=== PATIENT | female | born 1980 | race Caucasian/White ===

== ENCOUNTER 2017-12-23 10:42 | Outpatient (CLI) | payer MEDICAID, SELFPAY ==
[2017-12-23 13:35] LABS: Ferritin 80 ng/mL (8-388)
== END 2017-12-23 11:02 ==
PROVIDERS: PCP Family Medicine; Visit Provider Nurse Practitioner
DX: M25.50 Pain in unspecified joint (principal)
CPT/HCPCS: 36415; 82728

== ENCOUNTER 2018-10-27 13:53 | Outpatient (CLI) | payer MEDICAID, SELFPAY ==
[2018-10-27 14:18] LABS: Abs Immature Grans 0.04 k/cumm (0.0-0.09); Absolute Basophil Count 0.04 k/cumm (0.0-0.2); Absolute Eosinophil Count 0.19 k/cumm (0.0-0.7); Absolute Lymphocyte Count 2.09 k/cumm (1.2-3.4); Absolute Monocyte Count 0.71 k/cumm (0.11-0.7); Absolute Neutrophil Count 4.34 k/cumm (1.2-6.7); Basophils % 0.5; Eosinophils % 2.6; HCT 40.4 % (36.0-46.0); HGB 13.7 g/dL (12.0-15.5); Immature Grans % 0.5; Lymphocytes % 28.2; Mean Corp. HGB Concentration 33.9 g/dL (32.0-36.0); Mean Corpuscular Hemoglobin 30.6 pg (27.0-33.0); Mean Corpuscular Volume 90.2 fL (80-95); Mean Platelet Volume 9.7 fL (8.0-11.0); Monocytes % 9.6; Neutrophils % 58.6; Platelet Count 229 x1000/uL (130-400); RBC 4.48 m/cumm (4.00-5.20); RBC Distribution Width 11.5 % (11.7-14.6); White Blood Cell Count 7.41 k/cumm (4.4-10.8)
[2018-10-27 15:49] LABS: ALT 19 U/L (12-78); AST 13 U/L (15-37); Albumin 4.3 g/dL (3.4-5.0); Alkaline Phosphatase 49 U/L (46-116); BUN 19 mg/dL (7-18); Bilirubin, Total 0.5 mg/dL (0.2-1.0); CREATININE 0.61 mg/dL (0.55-1.02); Calcium 9.3 mg/dL (8.5-10.1); Chloride 104 mmol/L (98-107); Glucose 92 mg/dL (70-100); Sodium 141 mmol/L (136-145); Total Protein 7.8 g/dL (6.4-8.2)
== END 2018-10-27 14:13 ==
PROVIDERS: PCP Family Medicine; Visit Provider Nurse Practitioner Psychiatric/Mental Health
DX: Z79.899 Other long term (current) drug therapy (principal)
CPT/HCPCS: 36415; 80053; 84443; 85025

== ENCOUNTER 2018-11-13 10:21 | Outpatient (CLI) | payer MEDICAID, SELFPAY ==
[2018-11-13 11:13] LABS: Lithium 1.16 mmol/L (0.60-1.20)
== END 2018-11-13 10:41 ==
PROVIDERS: PCP Family Medicine; Visit Provider Nurse Practitioner Psychiatric/Mental Health
DX: Z51.81 Encounter for therapeutic drug level monitoring (principal); Z79.899 Other long term (current) drug therapy
CPT/HCPCS: 36415; 80178

== ENCOUNTER 2018-12-01 03:35 | Outpatient (CLI) | payer MEDICAID, SELFPAY ==
[2018-12-01 08:43] LABS: Lithium 0.69 mmol/L (0.60-1.20)
== END 2018-12-01 03:55 ==
PROVIDERS: PCP Family Medicine; Visit Provider Nurse Practitioner Psychiatric/Mental Health
DX: Z51.81 Encounter for therapeutic drug level monitoring (principal); Z79.899 Other long term (current) drug therapy
CPT/HCPCS: 36415; 80178

== ENCOUNTER 2018-12-20 09:21 | Outpatient (CLI) | payer MEDICAID, SELFPAY ==
[2018-12-20 09:39] LABS: Abs Immature Grans 0.05 k/cumm (0.0-0.09); Absolute Basophil Count 0.06 k/cumm (0.0-0.2); Absolute Eosinophil Count 0.39 k/cumm (0.0-0.7); Absolute Lymphocyte Count 1.44 k/cumm (1.2-3.4); Absolute Monocyte Count 0.63 k/cumm (0.11-0.7); Absolute Neutrophil Count 5.79 k/cumm (1.2-6.7); Basophils % 0.7; Eosinophils % 4.7; HCT 39.3 % (36.0-46.0); HGB 12.7 g/dL (12.0-15.5); Immature Grans % 0.6; Lymphocytes % 17.2; Mean Corp. HGB Concentration 32.3 g/dL (32.0-36.0); Mean Corpuscular Hemoglobin 30.1 pg (27.0-33.0); Mean Corpuscular Volume 93.1 fL (80-95); Mean Platelet Volume 10.2 fL (8.0-11.0); Monocytes % 7.5; Neutrophils % 69.3; Platelet Count 193 x1000/uL (130-400); RBC 4.22 m/cumm (4.00-5.20); RBC Distribution Width 11.6 % (11.7-14.6); White Blood Cell Count 8.36 k/cumm (4.4-10.8)
[2018-12-20 13:28] LABS: Lithium 1.01 mmol/L (0.60-1.20)
== END 2018-12-20 09:41 ==
PROVIDERS: PCP Family Medicine; Visit Provider Nurse Practitioner Psychiatric/Mental Health
DX: F31.81 Bipolar II disorder (principal); Z51.81 Encounter for therapeutic drug level monitoring; Z79.899 Other long term (current) drug therapy; F32.9 Major depressive disorder, single episode, unspecified
CPT/HCPCS: 36415; 80164; 80178; 85025

== ENCOUNTER 2019-01-22 08:39 | Outpatient (CLI) | payer MEDICAID, SELFPAY ==
[2019-01-22 09:11] LABS: Abs Immature Grans 0.04 k/cumm (0.0-0.09); Absolute Basophil Count 0.04 k/cumm (0.0-0.2); Absolute Lymphocyte Count 1.39 k/cumm (1.2-3.4); Absolute Monocyte Count 0.58 k/cumm (0.11-0.7); Basophils % 0.6; Eosinophils % 5.8; Immature Grans % 0.6; Lymphocytes % 20.3; Monocytes % 8.5; Neutrophils % 64.2; Platelet Count 207 x1000/uL (130-400); White Blood Cell Count 6.85 k/cumm (4.4-10.8)
[2019-01-22 10:08] LABS: Lithium 1.24 mmol/L (0.60-1.20)
[2019-01-22 10:25] LABS: ALT 30 U/L (14-59); AST 11 U/L (15-37); BUN 7 mg/dL (7-18); TSH 1.66 uIU/mL (0.36-3.74)
== END 2019-01-22 08:59 ==
PROVIDERS: PCP Family Medicine; Visit Provider Nurse Practitioner Psychiatric/Mental Health
DX: F31.81 Bipolar II disorder (principal); Z51.81 Encounter for therapeutic drug level monitoring; Z79.899 Other long term (current) drug therapy
CPT/HCPCS: 36415; 84520; 85048; 80164; 80178; 84443; 84450; 84460; 85007; 85049

== ENCOUNTER 2019-05-02 16:41 | Outpatient (CLI) | payer MEDICAID, SELFPAY ==
--- NOTE | 2019-05-02 16:04 | DI.RAD_ITS ---
EXAM: XR KNEE RT 3V AP,LAT,DENIA INDICATION: RT KNEE PAIN M25.561, S/P EXCISION CHOSTOCHONDROMA 2016, RECURRENT PAIN,? recurrence COMPARISON: RIGHT KNEE 3 VIEWS from 06/09/2015 RIGHT KNEE 3 VIEWS from 03/21/2017 TECHNIQUE: 2D digital imaging was performed. FINDINGS: The bones are intact and normally mineralized. No evidence of a recurrent osteochondroma. The joint spaces are well maintained. The soft tissues are unremarkable.
== END 2019-05-02 17:01 ==
PROVIDERS: PCP Family Medicine; Visit Provider Family Medicine
DX: M25.561 Pain in right knee (principal); Z98.890 Other specified postprocedural states
CPT/HCPCS: 73562

== ENCOUNTER 2019-12-03 19:14 | Outpatient (REF) | payer MEDICAID, SELFPAY ==
[2019-12-03 19:53] LABS: Absolute Basophil Count 0.05 10^3/uL (0.0-0.2); Absolute Eosinophil Count 0.26 10^3/uL (0.0-0.7); Basophils % 0.6; HGB 13.4 g/dL (11.2-15.7); Nucleated RBC 0 %
[2019-12-03 19:55] LABS: Abs Immature Grans 0.12 10^3/uL (0.0-0.06); Absolute Lymphocyte Count 1.77 10^3/uL (1.2-3.4); Absolute Monocyte Count 0.64 10^3/uL (0.1-0.8); Eosinophils % 3.3; HCT 41.6 % (36.0-46.0); Immature Grans % 1.5; Lymphocytes % 22.5; MCH 30.1 pg (27.0-33.0); MCHC 32.2 % (32.0-36.0); MCV 93.5 fL (80-95); MPV 11.3 fL (8.0-11.0); Monocytes % 8.1; RBC 4.45 10^6/uL (3.93-5.22); RDW 11.1 % (11.7-14.6); RDW-SD 37.5 fL; WBC 7.86 10^3/uL (4.4-10.8)
[2019-12-03 20:16] LABS: ALT 28 U/L (14-59); AST 11 U/L (15-37); Albumin 4.2 g/dL (3.4-5.0); Alkaline Phosphatase 50 U/L (46-116); Bilirubin, Direct 0.09 mg/dL (0.00-0.20); Bilirubin, Total 0.3 mg/dL (0.2-1.0); TSH (W/Ref FT4) 0.39 uIU/mL (0.36-3.74); Total Protein 7.5 g/dL (6.4-8.2)
[2019-12-03 20:21] LABS: Absolute Neutrophil Count 5.03 10^3/uL (1.2-6.7)
[2019-12-03 20:25] LABS: Vitamin D 25 Total 30.1 ng/ml (30-100)
[2019-12-03 22:37] LABS: Diff Comment PLT Morph Reviewed; RBC Morphology Normal
[2019-12-03 22:38] LABS: Platelet Count 159 10^3/uL (130-400)
== END 2019-12-03 19:34 ==
LOC: NCHCN 19:14
PROVIDERS: PCP Family Medicine; Visit Provider Nurse Practitioner Psychiatric/Mental Health
DX: F32.9 Major depressive disorder, single episode, unspecified (principal); Z79.899 Other long term (current) drug therapy; Z51.81 Encounter for therapeutic drug level monitoring
CPT/HCPCS: 80076; 82306; 84443; 85025

== ENCOUNTER 2020-06-15 09:03 | Emergency (ER) | payer MEDICAID, SELFPAY ==
[2020-06-15] VITALS (16 sets, daily range): BP systolic 118–131; BP diastolic 62–76; PULSE 72–133; RESP 16–52; TEMP 36.3; O2SAT 97–100
--- NOTE | 2020-06-15 09:15 | RT.EKG_ITS ---
APPROVED REPORT Exam: Resting ECG Patient Location: E HR:88 bpm ECG Measurements Heart Rate 88 AXIS ND 159 P 73 QRSd 81 QRS 60 QT 351 T 36 QTc 426 Conclusion Sinus rhythm...normal P axis, V-rate 60- 99
--- NOTE | 2020-06-15 09:30 | DI.CT_ITS ---
EXAM: CT CHEST PE CTA CLINICAL HISTORY: dyspnea, chest tightness. TECHNIQUE: Imaging Protocol: Axial CT angiography was performed with multi-slice acquisition and mu lti-planar and/or 3D reconstructions. CONTRAST MATERIAL: Intravenous: Omnipaque 350 Contrast volume:100 mL COMPARISON: CT CHEST FOR PULMONARY EMBOLUS from 06/24/2016 FINDINGS: Tracheobronchial tree: Patent where visualized. Pulmonary parenchyma: No consolidation or dominant measurable mass. No architectural distortion. Pulmonary Arteries: No evidence of filling defect to suggest pulmonary emboli. Mediastinum and Adriana: No dominant adenopathy or fluid collection. Small hiatal hernia. Visualized thyroid gland: Unremarkable. Pleura: No effusion or pneumothorax. Heart: The heart is not dilated. No coronary artery calcifications are seen. No pericardial effusion. Aorta: Thoracic aorta non-dilated. No evidence of dissection. Upper abdomen: Status post cholecystectomy. No biliary ductal dilatation. Soft tissues: Unremarkable. Bones: Normal. IMPRESSION: No evidence of pulmonary embolism, thoracic aortic dissection or aneurysm. RADIATION DOSE DELIVERED: 334.39mGy.cm Total DLP DATA REPOSITORY: All CT scans at this facility are submitted to the National Radiology Data Registry (NRDR) Dose Index Registry (DIR) with the [employer] (A[employer]). RADIATION OPTIMIZATION: All CT scans at this facility use at least one of these dose optimization te chniques: automated exposure control; mA and/or kV adjustment per patient size (includes targeted exa ms where dose is matched to clinical indication); or iterative reconstruction.
--- NOTE | 2020-06-15 09:35 | ED.GENADUL_ITS ---
Discharge Plan Disposition Patient Disposition: HOME Condition: Stable Discharge Details Clinical Impression: Shortness of breath Primary Care Provider: Dana Cagle ED Provider: Alec Conrad Home Meds and New Rx's Prescriptions: New lorazepam 1 mg tablet 1 mg PO TID PRN (Reason: anxiety) Qty: 10 RF: 0 Continued valproic acid [Depakene] 250 mg capsule 250 mg PO QAM RF: 0 valproic acid [Depakene] 250 mg capsule 500 mg PO QHS RF: 0 riboflavin (vitamin B2) 100 mg tablet 100 mg PO BID Qty: 60 RF: 6 Mirena 1 EACH intrauterine device 1 ea Intrauterine ONCE Qty: 1 RF: 0 sumatriptan succinate [Imitrex] 100 mg tablet 100 mg PO ONCE RF: 0 gabapentin 300 mg capsule 1,200 mg PO QHS RF: 0 Discontinued lorazepam 0.5 mg tablet 0.25 mg PO DAILY PRNRF: 0 Discharge Instructions Additional Instructions: Your blood work and cat scan did not show any concerning findings your vital signs did not show any concerning findings follow up with your primary care provider within 1-2 weeks if you feel more ill, have worsening symptoms or severe pain return to the emerg ency department Stand Alone Forms: POSITIVE COVID-19/TO BE TESTED Medical Decision Making 40 yo female who states she tested positive for covid this past comes in with complaints of feeling general weaknes and chest tightness and that it is hard to breath. She arrives appearing to be in a panic attack breathing over 40 a minute and having tremors of the extremities. She has clear breath sounds throughout, no murmurs. Denies smoking alcohol or drug use. She has no jvd or leg swelling. I suspect her symptoms could be from anxiety and unlikely severe covid19 given 100% on room air. Given her chest tightness will obtain ecg and troponin, heart score is 2. She is wells score moderate given her tachycardia so will obtain CTA to evaluate for PE vs underlying pneumonia. pt less anxious after ativan and now has normal heart rate and respiratory rate, stable blood pressure and 100% on room air, will continue to monitor imaging unremarkable and labs also unremarkable. She remains stable and appears significantly better after ativan and ivf. Given over a day of symptoms do not feel additional troponin indicated. will d/c home and advised to f/u with pcp, return precautions given. Pt offered oximeter for home use but declines as she states she has one already Differential Diagnosis Differential Diagnosis: covid, PE, pneumonia Medical Records Medical records reviewed: Yes I reviewed the patient's medical records. Imaging Data Radiologic Study: Attestation: I personally reviewed and interpreted this imaging study as follows: Imaging: CT Scan Radiologist's impression: no acute findings Lab Data Lab results reviewed: Yes I reviewed the patient's lab results. ECG Data Attestation: I personally reviewed and interpreted this ECG (s) as follows: Prior ECG tracings: not available for review Interpretation: sinus rhythm, rate of 88, pr 159, qtc 426 HPI General Date/Time Provider Initiated Documentation: 06/15/20 09:04 . Limitations to Documentation: no limitations . Information obtained by: patient . History of Present Illness 40 year old F presents to the emergency department with the chief complaint of can't breathe, described as moderate, and it has been constant. No relieving factors improve symptom(s), No exacerbating factors reported . Patient did receive the following treatments prior to arrival, none Related Data Home Medications Medication Instructions Recorded Confirmed Mirena 1 ea INTRAUTERINE ONCE #1 implant 07/20/17 06/15/20 sumatriptan succinate 100 mg tablet 100 mg PO ONCE 12/22/18 06/15/20 gabapentin 300 mg capsule 1,200 mg PO QHS cap 12/27/18 06/15/20 riboflavin (vitamin B2) 100 mg 100 mg PO BID #60 tab 12/27/18 06/15/20 tablet valproic acid 250 mg capsule 250 mg PO QAM cap 01/24/19 06/15/20 valproic acid 250 mg capsule 500 mg PO QHS cap 01/24/19 06/15/20 lorazepam 1 mg PO TID PRN #10 tab 06/15/20 Previous Rx's Medication Instructions Recorded Mirena 1 ea INTRAUTERINE ONCE #1 implant 07/20/17 riboflavin (vitamin B2) 100 mg 100 mg PO BID #60 tab 12/27/18 tablet lorazepam 1 mg PO TID PRN #10 tab 06/15/20 Allergies Allergy/AdvReac Type Severity Reaction Status Date / Time ondansetron HCl [From Zofran] Allergy Severe CARDIAC Unverified 06/15/20 09:54 ARREST hydrocodone bitartrate AdvReac Intermediate Nausea Unverified 06/15/20 09:54 [From Vicodin] Penicillins AdvReac Intermediate flu Unverified 06/15/20 09:54 symptoms General Stated Complaint: SOB SHAHRAM: 2 Review of Systems All systems reviewed & are unremarkable except as noted in HPI and below Constitutional Constitutional: Denies chills Gastrointestinal Gastrointestinal: Denies abdominal pain, Denies nausea and Denies vomiting Musculoskeletal Musculoskeletal: Denies joint swelling [facility] Medical History (Updated 06/15/20 @ 11:14 by Alec Conrad MD) Attempted suicide Bipolar disorder Calculus of gallbladder with acute cholecystitis Cardiac arrest at age 17yrs from allegic reaction to Zofran. Childhood asthma Chronic fatigue Chronic insomnia Depression Genital herpes Hirsutism Inappropriate diet and eating habits Insomnia IUD (intrauterine device) in place Knee pain, right Migraine headache Migraine headache with aura Migraine headache without aura PTSD (post-traumatic stress disorder) Tension-type headache Surgical History section Cholecystectomy 2013 Repair, Cleft Lip Repair, Cleft Palate Family History Father Personal history of malignant neoplasm Sister Personal history of malignant neoplasm leukemia Brother Heart disease Social History (Updated 01/24/19 @ 12:27 by Mickie Nguyen RN) Smoking/Tobacco Use Status: Never Smoking risk assessment performed?: Yes Alcohol Intake: never Drug use: Never Seatbelt use: always Do you feel safe in your relationship?: Yes Exam Const General: anxious Orientation: alert HENMT Head: normal to inspection Ears: external ears normal General nose exam: external nose normal Mouth: moist mucous membranes Eyes General: appearance normal, both eyes and all related structures Neck Neck: normal visual inspection Resp Auscultation: clear to auscultation bilaterally Cardio Rate: regular rate Skin General skin exam: no rashes or lesions noted Neuro General: patient alert and patient oriented x3 Extrem General: normal to inspection Psych Mental Status: mental status grossly normal Course Vital Signs Vital signs: Vital Signs Temperature 36.3 C L 06/15/20 09:23 Pulse 122 H 06/15/20 09:23 Respiratory Rate 21 06/15/20 09:23 Blood Pressure 127/62 06/15/20 09:23 Pulse Oximetry 100 06/15/20 09:23 Temperature 36.3 C L 06/15/20 09:23 Temperature Source Skin 06/15/20 09:23 Pulse 122 H 06/15/20 09:23 Respiratory Rate 21 06/15/20 09:23 Respiratory Effort 06/15/20 09:23 Blood Pressure 127/62 06/15/20 09:23 Blood Pressure Position Sitting 06/15/20 09:23 Pulse Oximetry 100 06/15/20 09:23 Oxygen Delivery Method Room Air 06/15/20 09:23 Oxygen Flow Rate 0 06/15/20 09:23 Pain Level 9 06/15/20 09:23
[2020-06-15] MEDS: Normal Saline Flush 10 ML SYR IVP ×2 (09:40→10:52)
[2020-06-15 09:49] LABS: BE (Venous) 2 mmol/L (-2-3); HCO3 (Venous) 26 mmol/L (23-28); O2 Sat (Venous) 78 %; TCO2 (Venous) 23 mmol/L (24-29); pCO2 (Venous) 36 mmHg (41-51); pH (Venous) 7.47 (7.31-7.41); pO2 (Venous) 36 mmHg
[2020-06-15] MEDS: Normal Saline 1,000 ML 1000 ML IV (09:50)
[2020-06-15 09:51] LABS: Abs Immature Grans 0.03 10^3/uL (0.0-0.06); Absolute Basophil Count 0.03 10^3/uL (0.0-0.2); Absolute Eosinophil Count 0.06 10^3/uL (0.0-0.7); Absolute Lymphocyte Count 0.97 10^3/uL (1.2-3.4); Absolute Monocyte Count 0.83 10^3/uL (0.1-0.8); Absolute Neutrophil Count 4.62 10^3/uL (1.2-6.7); Basophils % 0.5; Eosinophils % 0.9; HGB 14.2 g/dL (11.2-15.7); Immature Grans % 0.5; Lymphocytes % 14.8; MCH 30.7 pg (27.0-33.0); MCHC 34.6 % (32.0-36.0); MCV 88.7 fL (80-95); MPV 9.9 fL (8.0-11.0); Monocytes % 12.7; Neutrophils % 70.6; Nucleated RBC 0 %; Platelet Count 160 10^3/uL (130-400); RBC 4.62 10^6/uL (3.93-5.22); RDW 10.9 % (11.7-14.6); RDW-SD 35.5 fL; WBC 6.54 10^3/uL (4.4-10.8)
[2020-06-15] MEDS: LORazepam 2 MG/ML VIAL 1 MG IVP (09:52)
[2020-06-15 10:02] LABS: PTT Activated 25.9 sec (21.0-27.5); Prothrombin Time 10.4 sec (9.3-11.0)
[2020-06-15 10:13] LABS: ALT 21 U/L (14-59); AST 18 U/L (15-37); Albumin 4.1 g/dL (3.4-5.0); Alkaline Phosphatase 58 U/L (46-116); Anion Gap 11.8 mmol/L (3-11); BUN 21 mg/dL (7-18); Bilirubin, Total 0.5 mg/dL (0.2-1.0); CO2 25.2 mmol/L (21.0-32.0); CREATININE 0.8 mg/dL (0.55-1.02); Chloride 100 mmol/L (98-107); Glucose 102 mg/dL (74-106); Magnesium 2.1 mg/dL (1.8-2.4); Potassium 3.5 mmol/L (3.5-5.1); Sodium 137 mmol/L (136-145); Total Protein 8.6 g/dL (6.4-8.2); Troponin I < 0.05 ng/mL (<0.06)
[2020-06-15 10:24] LABS: Lithium < 0.2 mmol/l (0.6-1.2); VALPROIC ACID < 3 ug/mL (50-100)
--- NOTE | 2020-06-15 10:47 | NUR.NOTE ---
unable to obtain urine. states she is not , states she has not had sex. also mirena is in place. is willing to take risk that she is not to have ct scan before urine test.Nursing Note:
[2020-06-15] MEDS: Omnipaque 350 MG/ML 50 ML BTL 100 ML IJ (10:51)
[2020-06-15] MEDS: Normal Saline - Diluent 50 ML VIAL IV (10:52)
--- NOTE | 2020-06-15 11:05 | DI.VRAD_ITS ---
PROCEDURE INFORMATION: Exam: CT Angiography Chest With Contrast Exam date and time: 06/15/2020 9:35 AM Age: 40 years old Clinical indication: Patient HX: Dyspnea, chest tightness TECHNIQUE: Imaging protocol: Computed tomographic angiography of the chest with contrast. 3D rendering (Not supervised by radiologist): MIP and/or 3D reconstructed images were created by the technologist. Contrast material: OMNIPAQUE 350; Contrast volume: 100 ml; Contrast route: INTRAVENOUS (IV); COMPARISON: CT CHEST FOR PULMONARY EMBOLUS 06/24/2016 4:52 AM FINDINGS: Pulmonary arteries: Normal. No pulmonary emboli. Aorta: Unremarkable. No aortic aneurysm. No aortic dissection. Lungs: There is bibasilar atelectasis. There is mild pleuroparenchymal apical thickening. Pleural spaces: Unremarkable. No pneumothorax. No pleural effusion. Heart: Heart is within normal limits in size. Mediastinal space: There is a small hiatal hernia. Lymph nodes: Unremarkable. No enlarged lymph nodes. Gallbladder and bile ducts: There are cholecystectomy clips. Bones/joints: No acute fracture. Soft tissues: Unremarkable. IMPRESSION: 1. No focal consolidation or pleural effusion. 2. No pulmonary embolism or aortic dissection. Dictated and Authenticated by: Geovanny Ramirez MD. Ordering:JESSICA Michael MD
== END 2020-06-15 11:35 | disposition home or self-care (01) ==
PROVIDERS: Emergency Provider Emergency Medicine; PCP Family Medicine
DX: R06.02 Shortness of breath (principal); R07.89 Other chest pain
CPT/HCPCS: 71275; 80053; 82805; 93005; 96361; 96374; 99285; 80164; 80178; 83735; 84484; 85025; 85610; 85730; 93010; 99283; J2060; Q9967

== ENCOUNTER 2020-07-25 03:57 | Outpatient (CLI) | payer MEDICAID, SELFPAY ==
--- NOTE | 2020-07-25 13:11 | DI.RAD_ITS ---
EXAM: XR CHEST 2V PA LATERAL CLINICAL HISTORY: SOB.R06.02 TECHNIQUE: 2D digital imaging was performed. COMPARISON: No exams were available for comparison FINDINGS: MEDIASTINUM: Normal. HEART: Normal. PULMONARY VASCULATURE: Normal. LUNGS: Clear. PLEURAL SPACE: No pleural effusion or pneumothorax. BONE:Within normal limits for the patient's age. OTHER FINDINGS:Normal. IMPRESSION: No acute pulmonary findings. DATA REPOSITORY: RADIATION DOSE DELIVERED:
== END 2020-07-25 04:17 ==
PROVIDERS: PCP Family Medicine; Visit Provider Nurse Practitioner Family
DX: R06.02 Shortness of breath (principal)
CPT/HCPCS: 71046

== ENCOUNTER 2020-07-28 16:45 | Outpatient (REF) | payer MEDICAID, SELFPAY ==
[2020-07-28 21:54] LABS: Abs Immature Grans 0.08 10^3/uL (0.0-0.06); Absolute Basophil Count 0.07 10^3/uL (0.0-0.2); Absolute Eosinophil Count 0.16 10^3/uL (0.0-0.7); Absolute Lymphocyte Count 2.06 10^3/uL (1.2-3.4); Absolute Monocyte Count 0.71 10^3/uL (0.1-0.8); Absolute Neutrophil Count 7.31 10^3/uL (1.2-6.7); Basophils % 0.7; Eosinophils % 1.5; HCT 43.8 % (36.0-46.0); HGB 14.4 g/dL (11.2-15.7); Immature Grans % 0.8; Lymphocytes % 19.8; MCH 29.8 pg (27.0-33.0); MCHC 32.9 % (32.0-36.0); MCV 90.5 fL (80-95); Monocytes % 6.8; Neutrophils % 70.4; Nucleated RBC 0 %; Platelet Count 144 10^3/uL (130-400); RBC 4.84 10^6/uL (3.93-5.22); RDW 11.7 % (11.7-14.6); RDW-SD 38.9 fL; WBC 10.39 10^3/uL (4.4-10.8)
== END 2020-07-28 16:46 | disposition home or self-care (01) ==
LOC: NCHCN 16:45
PROVIDERS: PCP Family Medicine; Visit Provider Family Medicine
DX: Z86.16 Personal history of COVID-19 (principal)
CPT/HCPCS: 80053; 85025; 86140

== ENCOUNTER 2020-12-30 00:47 | Outpatient (CLI) | payer MEDICAID, SELFPAY ==
--- OUTSIDE RECORDS SUMMARY | 2020-12-30 00:49 | XMS_ITS ---
:1980 Author Care Team Providers Name Role Phone DR. MALLIKA CESAR Referring Provider [phone] [facility] MEDICAL RECORDS Primary Care Provider [phone] Allergies Code Code System Name Reaction Severity Status Onset 5489 RxNorm Hydrocodone ? ? Active ? 28848 RxNorm Ondansetron ? ? Active ? Penicillins ? ? Active ? Medications Name Status Start Date Stop Date ? ? amitriptyline 10 mg tablet Completed ? 03/13 TAKE 1-2 TABLETS BY MOUTH AT BEDTIME amitriptyline 50 mg tablet Completed ? 02/09 Take 1 tablet every day by oral route at bedtime. Effexor 75 mg tablet Completed ? 06/26/2018 Take 1 tablet every day by oral route. Effexor XR 150 mg capsule,extended release Completed ? 09/07/2018 Take 1 capsule every day by oral route. gabapentin 100 mg capsule Completed ? 2018 take 1-3 capsules PO QHS gabapentin 300 mg capsule Active ? Not av ailable TAKE 1-2 CAPSULES BY MOUTH AT BEDTIME mirtazapine 15 mg tablet Completed ? 018 mirtazapine 30 mg tablet Completed ? 018 mirtazapine 7.5 mg tablet Completed ? 2017 ropinirole 0.25 mg tablet Completed ? 2017 take 1 PO 2-3 hours before bedtime for one week then increase to two tablets for one week ropinirole 1 mg tablet Completed ? 8 take 1 PO 2-3 hours before bedtime sumatriptan 100 mg tablet Active ? Not av ailable topiramate 25 mg tablet Completed ? 11/25/19 18 trazodone 50 mg tablet Completed ? 8 zolpidem 5 mg tablet Completed ? 11/24/2017 take 1 PO at bedtime for two weeks Problems Name Status Onset Date Source ? Restless Legs Active 08/25/2017 ? Insomnia Active 09/19/2017 ? Obstructive Sleep Apnea Syndrome Active 09/19/2017 ? Mild Depression Active 10/21/2017 ? Migraine with Aura Active 10/21/2017 ? Cardiac Arrest Active 10/21/2017 ? Childhood Asthma Active 10/21/2017 ? Gallstone Active 10/21/2017 ? Cholecystitis Active 10/21/2017 ? Joint Pain Active 10/21/2017 ? Daytime Hypersomnia Active 10/21/2017 ? Generalized Headache Active 10/21/2017 ? Snoring Active 10/21/2017 ? Procedures None recorded. Results Lab Results Date Name Specimen Result Interpretation Description Value Range Status Address ? 12/23/2017 Ferritin, ? No observation ? ? ? [facility] or recorded. [facility]: [address] [place] [address], [facility] Past Encounters None recorded. Social History Tobacco Smoking Status Never Smoker Vaccine List None recorded. Plan of Care Reminders Provider Appointments None ? ? recorded. Lab None ? ? recorded. Referral None ? ? recorded. Procedures None ? ? recorded. Surgeries None ? ? recorded. Imaging None ? ? recorded. Vitals 03/13/2019 08:00AM Office 30 Height Weight BMI Blood Pressure 168.91 cm 68.17 kg 23.9 kg/m2 116/74 mm[Hg] 09/07/2018 08:00AM Office 30 Height Weight BMI Blood Pressure 168.91 cm 64.05 kg 22.4 kg/m2 110/68 mm[Hg] 06/26/2018 08:00AM Office 30 Height Weight BMI Blood Pressure 168.91 cm 63.14 kg 22.1 kg/m2 118/78 mm[Hg] 04/24/2018 10:00AM Office 30 Height Weight BMI Blood Pressure 168.91 cm 63.46 kg 22.2 kg/m2 118/80 mm[Hg] 02/09/2018 09:00AM Office 30 Height Weight BMI Blood Pressure 168.91 cm 62.73 kg 22 kg/m2 138/82 mm[Hg] 11/24/2017 02:30PM Office 30 Height Weight BMI Blood Pressure 168.91 cm 64.5 kg 22.6 kg/m2 110/72 mm[Hg] 10/24/2017 03:45PM Office 30 Height Weight BMI Blood Pressure 168.91 cm 64.91 kg 22.8 kg/m2 118/68 mm[Hg] 09/19/2017 02:45PM Office 30 Weight Blood Pressure 66.39 kg 110/60 mm[Hg]
--- NOTE | 2020-12-30 08:51 | DI.RAD_ITS ---
Exam(s) XR LUMBAR SPINE COMPLETE EXAM: XR LUMBAR SPINE COMPLETE CLINICAL HISTORY: PAIN,M25.50. TECHNIQUE: 2D digital imaging was performed of the lumbar spine. Six views were obtained. AP, late ral, right oblique, left oblique and L5-S1 spot views were obtained. COMPARISON: No exams were available for comparison FINDINGS: BONES: No fracture or destructive lesion. Vertebral bodies are unremarkable. No facet hypertrophy yvon ntified. DISKS: Mild narrowing and calcification of the L1-L2 disc space. ALIGNMENT: Lumbar spinal alignment is within normal limits. No spondylolysis or spondylolisthesis. SOFT TISSUE: Surgical clips are seen in the right upper quadrant of the abdomen which may reflect kyle or cholecystectomy. There is an IUD in the pelvis. IMPRESSION: No acute abnormality. Mild degenerative disc space narrowing at L1-L2. DATA REPOSITORY: RADIATION DOSE DELIVERED:
== END 2020-12-30 01:07 ==
PROVIDERS: PCP Family Medicine; Visit Provider Nurse Practitioner Family
DX: M54.5 Low back pain (principal); M51.36 Other intervertebral disc degeneration, lumbar region
CPT/HCPCS: 72110

== ENCOUNTER 2021-02-13 18:52 | Emergency (ER) | payer MEDICAID, SELFPAY ==
--- NOTE | 2021-02-13 18:55 | ED.GENADUL_ITS ---
Discharge Plan Disposition Patient Disposition: HOME Condition: Improving Discharge Details Clinical Impression: Migraine, Sinus tachycardia, Adverse effect of metoclopramide Primary Care Provider: Dana Cagle ED Provider: Marin Reid Hornbeck Meds and New Rx's Prescriptions: Continued valproic acid [Depakene] 250 mg capsule 250 mg PO QAM RF: 0 valproic acid [Depakene] 250 mg capsule 500 mg PO QHS RF: 0 riboflavin (vitamin B2) 100 mg tablet 100 mg PO BID Qty: 60 RF: 6 Mirena 1 EACH intrauterine device 1 ea Intrauterine ONCE Qty: 1 RF: 0 sumatriptan succinate [Imitrex] 100 mg tablet 100 mg PO ONCE RF: 0 gabapentin 300 mg capsule 1,200 mg PO QHS RF: 0 lorazepam 1 mg tablet 1 mg PO TID PRN (Reason: anxiety) Qty: 10 RF: 0 Discharge Instructions Additional Instructions: Home and try to sleep which will hopefully aid in resolution of your headache. You may use the new medications your primary prescribed for your headache. You should not get metoclopramide in the future due to adverse reaction. Follow-up with primary care next week if not improving. Return to ED for neurologic change, mental status change, severe worsening headache, chest pain, shortness of breath, other concerns. Referrals: Dana Cagle MD [Primary Care Provider] - Discharge Data Discharge Date/Time-TO BE ENTERED AT DEPARTURE: 02/14/21 02:17 Medical Decision Making <Alec Conrad MD - Last Filed: 02/13/21 19:13> 40 yo female comes in with chief complaint of head pain for 3 days and states it feels similar to her prior migraines though is lasting longer than her prior migraines, has never had one last this long. States thepain slowly worsened and was not thunderclap on etiology. she localizes the pain just above the eye and radiates to the right and feels similar to prior migraines. No fevers, chills, neck pain, neck stiffness. She appears uncomfortable on exam. She is caox4 and has clear speech, perrl, eomi. Normal gait. No meningismus. I suspect this is a migraine resistant to the oral medications. no findings to suggest computer security specialist infection. It is concerning her symptoms have lasted 3 days and discussed performing ct imaging but at this time she prefers to see how she responds to IV agents. Will give reglan, dexmethasone, toradol and benadryl and obtain basic labs and reassess. patient signed out to oncoming provider pending response to migraine meds Differential Diagnosis Differential Diagnosis: migraine, tension headache Medical Records Medical records reviewed: Yes I reviewed the patient's medical records. <Marin Reid MD - Last Filed: 02/14/21 02:52> Patient signed out to me pending laboratory studies and reevaluation after being medicated for a migraine headache for the last 3 days. Patient seen initially by Dr. Conrad, please see his note for presentation. Patient with typical migraine headache other than the fact that it would not resolve despite her meds. Was seen by primary care and given oral Phenergan and ketorolac to use. Comes to the ED tonight with continued headache. She was given IV fluid, meto clopramide, diphenhydramine, dexamethasone by Dr. Conrad. Patient developed akathisia related to the metoclopramide. The diphenhydramine given in combination with metoclopramide did not help. Patient had some improvement of her headache with this cocktail. She was given a second liter of fluid and a dose of Ativan. Laboratory studies are unremarkable. Headache began to get a little worse again. Akathisia and restlessness stayed about the same. Patient with minimal visits to ED for headache. Therefore, given dose of morphine for headache. Subsequently much improved but heart rate went up despite patient feeling much better. EKG shows sinus tachycardia with no acute changes. Patient still complained of residual headache and received a second small dose of morphine. Again heart rate went up with no other change in vital signs. Ultimately patient felt much better and despite the sinus tachycardia which seem to be related to dosing with morphine she seemed ready for discharge. She will go home and try to get some sleep to hopefully resolve her residual headache. She has the Phenergan and ketorolac prescribed by primary care. Follow-up with primary care next week if not improving. Return to ED if worsening. Lab Data Lab results reviewed: Yes I reviewed the patient's lab results. HPI <Alec Conrad MD - Last Filed: 02/13/21 19:13> General Mode of arrival: ambulatory . Date/Time Provider Initiated Documentation: 02/13/21 18:54 . Limitations to Documentation: no limitations . Information obtained by: patient . History of Present Illness 40 year old F presents to the emergency department with the chief complaint of migraine, described as moderate, Quality is described as aching, and is localized to the head. Patient reports no radiation. Patient started experiencing this day(s) (3) and it has been constant. No relieving factors improve symptom(s), No exacerbating factors reported . Related Data Home Medications Medication Instructions Recorded Confirmed Mirena 1 ea INTRAUTERINE ONCE #1 implant 07/20/17 02/13/21 sumatriptan succinate 100 mg tablet 100 mg PO ONCE 12/22/18 02/13/21 gabapentin 300 mg capsule 1,200 mg PO QHS cap 12/27/18 02/13/21 riboflavin (vitamin B2) 100 mg 100 mg PO BID #60 tab 12/27/18 02/13/21 tablet valproic acid 250 mg capsule 250 mg PO QAM cap 01/24/19 06/15/20 valproic acid 250 mg capsule 500 mg PO QHS cap 01/24/19 06/15/20 lorazepam 1 mg PO TID PRN #10 tab 06/15/20 02/13/21 Previous Rx's Medication Instructions Recorded Mirena 1 ea INTRAUTERINE ONCE #1 implant 07/20/17 riboflavin (vitamin B2) 100 mg 100 mg PO BID #60 tab 12/27/18 tablet lorazepam 1 mg PO TID PRN #10 tab 06/15/20 Allergies Allergy/AdvReac Type Severity Reaction Status Date / Time ondansetron HCl [From Zofran] Allergy Severe CARDIAC Unverified 02/13/21 19:00 ARREST metoclopramide AdvReac Severe Akathisia Verified 02/13/21 20:58 hydrocodone bitartrate AdvReac Intermediate Nausea Unverified 02/13/21 19:00 [From Vicodin] Penicillins AdvReac Intermediate flu Unverified 02/13/21 19:00 symptoms General SHAHRAM: 2 Review of Systems <Alec Conrad MD - Last Filed: 02/13/21 19:13> All systems reviewed & are unremarkable except as noted in HPI and below Constitutional Constitutional: Denies chills, Denies fever(s) and Denies weakness Cardiovascular Cardiovascular: Denies dyspnea Respiratory Respiratory: Denies dyspnea Gastrointestinal Gastrointestinal: Denies abdominal pain Musculoskeletal Musculoskeletal: Denies joint swelling Neurologic Neurologic: Denies weakness PFSH <Alec Conrad MD - Last Filed: 02/13/21 19:13> Medical History (Updated 02/14/21 @ 01:50 by Marin Reid MD) Attempted suicide Bipolar disorder Cardiac arrest at age 17yrs from allegic reaction to Zofran. Childhood asthma Chronic fatigue Chronic insomnia Depression Genital herpes Hirsutism Inappropriate diet and eating habits IUD (intrauterine device) in place Migraine headache PTSD (post-traumatic stress disorder) Tension-type headache Surgical History section Cholecystectomy 2013 Repair, Cleft Lip Repair, Cleft Palate Family History Father Personal history of malignant neoplasm Sister Personal history of malignant neoplasm leukemia Brother Heart disease Social History (Updated 01/24/19 @ 12:27 by Mickie Nguyen RN) Smoking/Tobacco Use Status: Never Smoking risk assessment performed?: Yes Alcohol Intake: never Drug use: Never Seatbelt use: always Do you feel safe in your relationship?: Yes Exam <Alec Conrad MD - Last Filed: 02/13/21 19:13> Const General: no acute distress Orientation: alert HENMT Head: normal to inspection Ears: external ears normal General nose exam: external nose normal Mouth: moist mucous membranes Eyes General: appearance normal, both eyes and all related structures Neck Neck: normal visual inspection Resp Effort & Inspection: normal respiratory effort and able to speak in complete sentences Cardio Rate: regular rate Skin General skin exam: no rashes or lesions noted Neuro General: patient alert and patient oriented x3 Extrem General: normal to inspection Psych Mental Status: mental status grossly normal Sign Out <Alec Conrad MD - Last Filed: 02/13/21 19:13> Sign Out Data: Sign Out Comment: history of migraines and has had pain similar to prior for 3 days, reassess after toradol, reglan, dexamethasone and benadryl Last updated by Alec Conrad MD at 02/13/21 19:14
[2021-02-13 18:56] VITALS: BP 127/76; PULSE 107; RESP 18; TEMP 36.7; O2SAT 99
[2021-02-13 19:29] LABS: Abs Immature Grans 0.04 10^3/uL (0.0-0.06); Absolute Basophil Count 0.06 10^3/uL (0.0-0.2); Absolute Eosinophil Count 0.47 10^3/uL (0.0-0.7); Absolute Lymphocyte Count 1.92 10^3/uL (1.2-3.4); Absolute Neutrophil Count 8.13 10^3/uL (1.2-6.7); Basophils % 0.5; Eosinophils % 4.2; HCT 43.6 % (36.0-46.0); HGB 14.2 g/dL (11.2-15.7); Immature Grans % 0.4; Lymphocytes % 17.1; MCH 28.7 pg (27.0-33.0); MCHC 32.6 % (32.0-36.0); MCV 88.1 fL (80-95); MPV 10.3 fL (8.0-11.0); Monocytes % 5.3; Neutrophils % 72.5; Nucleated RBC 0 %; Platelet Count 201 10^3/uL (130-400); RBC 4.95 10^6/uL (3.93-5.22); RDW 11.5 % (11.7-14.6); RDW-SD 36.9 fL; WBC 11.22 10^3/uL (4.4-10.8)
[2021-02-13 19:32] LABS: Absolute Monocyte Count 0.59 10^3/uL (0.1-0.8)
[2021-02-13] MEDS: diphenhydrAMINE 50 MG/ML VIAL 25 MG IVP (19:37)
[2021-02-13] MEDS: Ketorolac 15 MG/ML VIAL IVP (19:37)
[2021-02-13] MEDS: Normal Saline 1,000 ML 1000 ML IV ×2 (19:37→21:27)
[2021-02-13] MEDS: Metoclopramide 10 MG/2 ML VIAL IVP (19:37)
[2021-02-13] MEDS: Dexamethasone 10 MG/ML VIAL IVP (19:37)
[2021-02-13 19:41] LABS: ALT 19 U/L (14-59); AST 14 U/L (15-37); Albumin 4.2 g/dL (3.4-5.0); Alkaline Phosphatase 55 U/L (46-116); Anion Gap 6.8 mmol/L (3-11); BUN 11 mg/dL (7-18); Bilirubin, Total 0.4 mg/dL (0.2-1.0); CO2 29.2 mmol/L (21.0-32.0); CREATININE 0.7 mg/dL (0.55-1.02); Calcium 9.2 mg/dL (8.5-10.1); Chloride 105 mmol/L (98-107); Glucose 111 mg/dL (74-106); Magnesium 2.2 mg/dL (1.8-2.4); Potassium 3.9 mmol/L (3.5-5.1); Sodium 141 mmol/L (136-145); Total Protein 8.1 g/dL (6.4-8.2)
[2021-02-13 20:29] LABS: HCG Quant, Pregnancy < 1 mIU/mL (1-3)
[2021-02-13 20:39] VITALS: BP 135/82; PULSE 103; TEMP 37.4; O2SAT 95
[2021-02-13] MEDS: LORazepam 2 MG/ML VIAL 1 MG IVP (21:00)
[2021-02-13 23:33] VITALS: BP 129/67; PULSE 120; RESP 18; O2SAT 97
[2021-02-13 23:38] VITALS: TEMP 36.4
--- NOTE | 2021-02-13 23:45 | RT.EKG_ITS ---
APPROVED REPORT Exam: Resting ECG Reason for Exam: tachycardia Patient Location: E HR:126 bpm ECG Measurements Heart Rate 126 AXIS VA 146 P 73 QRSd 78 QRS 81 QT 316 T 41 QTc 458 Conclusion Sinus tachycardia...rate> 99 Normal intervals Normal axis No acute ST changes
[2021-02-14] MEDS: Normal Saline 1,000 ML 1000 ML IV (00:11)
[2021-02-14 00:55] VITALS: BP 132/64; PULSE 129; RESP 18; O2SAT 97
[2021-02-14 02:00] VITALS: BP 126/70; PULSE 122; RESP 16; O2SAT 99
== END 2021-02-14 02:17 | disposition home or self-care (01) ==
PROVIDERS: Emergency Medicine; Emergency Provider Emergency Medicine; PCP Family Medicine
DX: G43.909 Migraine, unspecified, not intractable, without status migrainosus (principal); R00.0 Tachycardia, unspecified; G25.71 Drug induced akathisia; T45.0X5A Adverse effect of antiallergic and antiemetic drugs, initial encounter
CPT/HCPCS: 80053; 93005; 96361; 96374; 96375; 96376; 99284; 83735; 84702; 85025; 93010; J1100; J1200; J1885; J2060; J2765

== ENCOUNTER 2021-10-08 16:21 | Outpatient (REF) | payer MEDICAID, SELFPAY ==
[2021-10-08 16:35] LABS: ALT 21 U/L (14-59); AST 20 U/L (15-37); Alkaline Phosphatase 54 U/L (46-116); Anion Gap 5.4 mmol/L (3-11); BUN 18 mg/dL (7-18); Bilirubin, Total 0.4 mg/dL (0.2-1.0); CO2 28.6 mmol/L (21.0-32.0); CREATININE 0.7 mg/dL (0.55-1.02); Calcium 9.3 mg/dL (8.5-10.1); Chloride 102 mmol/L (98-107); Glucose 88 mg/dL (74-106); Potassium 4.1 mmol/L (3.5-5.1); Sodium 136 mmol/L (136-145); TSH (W/Ref FT4) 0.52 uIU/mL (0.36-3.74); Total Protein 7.5 g/dL (6.4-8.2)
== END 2021-10-08 16:22 | disposition home or self-care (01) ==
LOC: NCHCN 16:21
PROVIDERS: PCP Family Medicine; Visit Provider Nurse Practitioner Family
DX: R25.2 Cramp and spasm (principal); E66.3 Overweight
CPT/HCPCS: 80053; 83540; 83550; 84443

== ENCOUNTER 2021-12-28 10:17 | Emergency (ER) | payer MEDICAID, SELFPAY ==
[2021-12-28 10:32] VITALS: BP 131/84; PULSE 104; RESP 18; TEMP 36.7; O2SAT 99
--- NOTE | 2021-12-28 10:43 | W.ED.GENAD ---
Discharge Plan Disposition Patient Disposition: HOME Condition: Stable Discharge Details Clinical Impression: COVID, Dehydration, Nausea & vomiting Primary Care Provider: Dana Cagle ED Provider: Rabia Lynne Home Meds and New Rx's Prescriptions: New promethazine 12.5 mg suppository 12.5 mg MO Q6H PRN (Reason: nausea and vomiting) Qty: 12 0RF Continued valproic acid [Depakene] 250 mg capsule 250 mg PO QAM valproic acid [Depakene] 250 mg capsule 500 mg PO QHS riboflavin (vitamin B2) 100 mg tablet 100 mg PO BID Qty: 60 6RF Mirena 1 EACH intrauterine device 1 ea Intrauterine ONCE Qty: 1 0RF sumatriptan succinate [Imitrex] 100 mg tablet 100 mg PO ONCE gabapentin 300 mg capsule 1,200 mg PO QHS lorazepam 1 mg tablet 1 mg PO TID PRN (Reason: anxiety) Qty: 10 0RF Discharge Instructions Instructions: Dehydration (ED), Acute Nausea and Vomiting (ED), Viral Syndrome (ED) Additional Instructions: You are COVID-positive. Your labs otherwise are concerning for some dehydration. I have sent a prescription for rectal Phenergan to your pharmacy of choice. PLease continue to encourage fluid intake. You may continue with Tylenol to help with body aches and fevers if they develop. If you develop inability stay hydrated, shortness of breath, difficulty breathing or other new/worsening symptoms to seek care urgently once again. Otherwise, please follow-up with primary care in 2 weeks for reevaluation. Please continue to quarantine for the next week. Stand Alone Forms: Work Release Referrals: Dana Cagle MD [Primary Care Provider] - Discharge Data Discharge Date/Time-TO BE ENTERED AT DEPARTURE: 12/28/21 13:25 Medical Decision Making Patient is a pleasant 41-year-old female with past medical history pertinent for significant allergies to antiemetics, migraines, bipolar, depression, IUD, PTSD, presenting today with chief complaint of nausea/vomiting, inability stay hydrated, general body aches, nasal congestion. She reports that she began having some nasal congestion and a slight cough 2 days ago. Yesterday evening at 5 PM began having nausea and vomiting. States that since then she has been vomiting approximately every 30 minutes. States that currently it is really just dry heaving that she is not bringing anything up. She denies any emesis or bilious vomiting. Denies any pain in the abdomen. No change in bowel habits. Reports that her urine has been diminished and attributes this to her dehydration. She denies any chest pain or shortness of breath. No recent travel or known sick contacts. States IUD is in place and denies . On exam, patient appears uncomfortable, she is holding emesis bag. She appears slightly dehydrated. She is tachycardic at 104, vital signs otherwise stable. Her lungs are clear, normal cardiac exam. Abdomen appears dehydrated, normal HEENT exam. As the patient is actively dry heaving, in upright position, abdominal exam is not performed as of yet we will perform this once her nausea and vomiting has been treated. Based on allergies, will treat with Phenergan. We will give fluids. Will obtain baseline blood work, concern for potential electrolyte abnormality with her persistent vomiting. Consider fluid COVID and will test for both. The patient is having no abdominal discomfort, has had no change in bowel habits, do not see indication to suggest obstruction or emergent abdominal pathology Reevaluated the patient. She reports feeling significantly improved. Her nausea and vomiting have completely resolved. Labs reviewed. No leukocytosis. Lymphocytes slightly low which is along with the patient's COVID-positive results. Discussed results with the patient. She does have a history of COVID in June and recovered well from this. Patient is not a high risk patient, does not qualify for proximal lobate or other emergent treatment at this time. We did discuss supportive care. She has used rectal Phenergan historically with good results. I encouraged frequent sips of fluid. Will send prescription for rectal Phenergan.n we discussed supportive care at home. Patient feels safe and ready for discharge. Return precautions discussed. Discussed quarantine. Encouraged f/u with her PCP. All of her questions and concerns were addressed, she is in agreement with ramone saenz. HPI General Date/Time Provider Initiated Documentation: 12/28/21 10:34. Limitations to Documentation: no limitations. Information obtained by: patient and RN notes reviewed. History of Present Illness 41 year old F presents to the emergency department with the chief complaint of nausea, vomiting, general malaise, described as moderate, Quality is described as other (denies any pain), and is localized to the abdomen. Patient reports no radiation. Patient started experiencing this day(s) (generaal fatigue/malaise began 2 days ago, N/V last night) and it has been constant. No relieving factors improve symptom(s), Patient notes loss of appetite, malaise and nausea/vomiting; denies chest pain, cough, fever/chills, rash, shortness of breath and weakness. Patient did receive the following treatments prior to arrival, none Related Data Home Medications Medication Instructions Recorded Confirmed levonorgestrel 20 mcg/24 hours (7 1 ea intrauterine ONCE #1 implant 07/20/17 02/13/21 yrs) 52 mg intrauterine device (Mirena) sumatriptan succinate 100 mg 100 mg PO ONCE 12/22/18 02/13/21 tablet (Imitrex) gabapentin 300 mg capsule 1,200 mg PO QHS 12/27/18 02/13/21 riboflavin (vitamin B2) 100 mg 100 mg PO BID #60 tabs 12/27/18 02/13/21 tablet valproic acid 250 mg capsule 250 mg PO QAM 01/24/19 06/15/20 (Depakene) valproic acid 250 mg capsule 500 mg PO QHS 01/24/19 06/15/20 (Depakene) lorazepam 1 mg tablet 1 mg PO TID PRN anxiety #10 tabs 06/15/20 02/13/21 promethazine 12.5 mg rectal 12.5 mg MO Q6H PRN nausea and 12/28/21 suppository vomiting #12 ea Previous Rx's Medication Instructions Recorded levonorgestrel 20 mcg/24 hours (7 1 ea intrauterine ONCE #1 implant 07/20/17 yrs) 52 mg intrauterine device (Mirena) riboflavin (vitamin B2) 100 mg 100 mg PO BID #60 tabs 12/27/18 tablet lorazepam 1 mg tablet 1 mg PO TID PRN anxiety #10 tabs 06/15/20 promethazine 12.5 mg rectal 12.5 mg MO Q6H PRN nausea and 12/28/21 suppository vomiting #12 ea Allergies Allergy/AdvReac Type Severity Reaction Status Date / Time ondansetron HCl [From Zofran] Allergy Severe CARDIAC Unverified 12/28/21 10:35 ARREST metoclopramide AdvReac Severe Akathisia Verified 12/28/21 10:35 hydrocodone bitartrate AdvReac Intermediate Nausea Unverified 12/28/21 10:35 [From Vicodin] Penicillins AdvReac Intermediate flu Unverified 12/28/21 10:35 symptoms General Stated Complaint: Nausea/Vomit/Diar SHAHRAM: 3 Review of Systems Constitutional Constitutional: Reports as per HPI and Denies headache(s) Eyes Eyes: Reports as per HPI, Denies eye discharge and Denies irritation ENT Ears, Nose, Mouth, and Throat: Reports as per HPI and Denies headache(s) Cardiovascular Cardiovascular: Reports as per HPI, Denies chest pain and Denies dyspnea Respiratory Respiratory: Reports as per HPI and Denies dyspnea Gastrointestinal Gastrointestinal: Reports as per HPI, Denies abdominal pain and Denies change in bowel habits Integumentary/Breasts Skin/Breast: Reports as per HPI and Denies rash Neurologic Neurologic: Reports as per HPI and Denies headache(s) PFSH All Active Problems (Updated 12/28/21 @ 13:02 by SERGIO West) Sinus tachycardia (Acute) Adverse effect of metoclopramide (Acute) COVID (Acute) Dehydration (Acute) Nausea & vomiting (Acute) Shortness of breath (Acute) Migraine (Chronic) Migraine headache without aura (Acute) Migraine headache with aura (Acute) Osteochondroma of femur (Acute) Medical History (Updated 12/28/21 @ 13:02 by SERGIO West) Attempted suicide Bipolar disorder Cardiac arrest at age 17yrs from allegic reaction to Zofran. Childhood asthma Chronic fatigue Chronic insomnia Depression Genital herpes Hirsutism Inappropriate diet and eating habits IUD (intrauterine device) in place Migraine headache PTSD (post-traumatic stress disorder) Tension-type headache Surgical History section 2001/2004 Cholecystectomy 2013 Repair, Cleft Lip Repair, Cleft Palate Family History Father Personal history of malignant neoplasm Sister Personal history of malignant neoplasm leukemia Brother Heart disease Social History (Updated 01/24/19 @ 12:27 by Mickie Nguyen RN) Smoking/Tobacco Use Status: Never Smoking risk assessment performed?: Yes Alcohol Intake: never Drug use: Never Seatbelt use: always Do you feel safe in your relationship?: Yes Exam Const General: cooperative, healthy appearing, comfortable, no acute distress, well developed and well groomed Nutritional Appearance: average body habitus and well nourished Orientation: alert and awake [facility] Head: normal to inspection, normocephalic and atraumatic Ears: hearing grossly normal bilaterally, external ears normal and TM's normal bilaterally General nose exam: external nose normal and nares normal Face and sinus: normal facial exam, sinuses nontender and face symmetric Mouth: oral mucosae normal, lip normal, tongue normal, oropharynx normal and moist mucous membranes Teeth and gingiva: dentition normal Throat: posterior oropharynx normal, tonsils normal and uvula midline Eyes General: appearance normal, both eyes and all related structures Neck Neck: normal visual inspection, full ROM, no lymphadenopathy and no meningeal signs Resp Effort & Inspection: normal respiratory effort, able to speak in complete sentences and no respiratory distress Auscultation: clear to auscultation bilaterally, no rales, no rhonchi and no wheezes Cardio Rate: regular rate Rhythm: regular rhythm Heart Sounds: S1 normal and S2 normal GI Inspection: normal to inspection Palpation: firm, no guarding, not rigid, no splenomegaly, nontender and No ascites Skin General skin exam: no rashes or lesions noted Neuro General: patient alert and patient awake Cognition: normal cognition Speech: speech normal Gait: normal gait Psych Appearance: grossly normal and well kempt Mental Status: mental status grossly normal Speech and Movement: speech and movement normal Course Vital Signs Vital signs: Vital Signs Temperature 36.7 C 12/28/21 10:32 Pulse 104 H 12/28/21 10:32 Respiratory Rate 18 12/28/21 10:32 Blood Pressure 131/84 12/28/21 10:32 Pulse Oximetry 99 12/28/21 10:32 Temperature 36.7 C 12/28/21 10:32 Temperature Source Oral 12/28/21 10:32 Pulse 104 H 12/28/21 10:32 Respiratory Rate 18 12/28/21 10:32 Respiratory Effort 12/28/21 10:35 Blood Pressure 131/84 12/28/21 10:32 Blood Pressure Position Sitting 12/28/21 10:32 Pulse Oximetry 99 12/28/21 10:32 Oxygen Delivery Method Room Air 12/28/21 10:32 Oxygen Flow Rate 0 12/28/21 10:32 Pain Level 0 12/28/21 10:32
[2021-12-28] MEDS: Lactated Ringers 1,000 ML 1000 ML IV (11:16)
[2021-12-28] MEDS: Ketorolac 15 MG/ML VIAL IVP (11:16)
[2021-12-28 11:22] LABS: Abs Immature Grans 0.03 10^3/uL (0.0-0.06); Absolute Basophil Count 0.04 10^3/uL (0.0-0.2); Absolute Lymphocyte Count 0.55 10^3/uL (1.2-3.4); Absolute Neutrophil Count 9.14 10^3/uL (1.2-6.7); Basophils % 0.4; HCT 45.2 % (36.0-46.0); HGB 15.8 g/dL (11.2-15.7); Immature Grans % 0.3; Lymphocytes % 5.4; MCV 86 fL (80-95); Monocytes % 3.9; Platelet Count 245 10^3/uL (130-400); RBC 5.26 10^6/uL (3.93-5.22); RDW 11.2 % (11.7-14.6); RDW-SD 35.3 fL; WBC 10.16 10^3/uL (4.4-10.8)
[2021-12-28] MEDS: ACETAMINOPHEN 1,000 MG/100 ML BTL 400 MG IVPB (11:42)
[2021-12-28 11:45] LABS: ALT 50 U/L (14-59); AST 37 U/L (15-37); Albumin 4.4 g/dL (3.4-5.0); Alkaline Phosphatase 75 U/L (46-116); Anion Gap 12.9 mmol/L (3-11); BUN 20 mg/dL (7-18); Bilirubin, Total 0.5 mg/dL (0.2-1.0); CO2 25.1 mmol/L (21.0-32.0); CREATININE 0.7 mg/dL (0.55-1.02); Calcium 9.5 mg/dL (8.5-10.1); Chloride 100 mmol/L (98-107); Estimated GFR 112.75 (mL/min/1.73m2); Glucose 120 mg/dL (74-106); Magnesium 2.1 mg/dL (1.8-2.4); Potassium 3.6 mmol/L (3.5-5.1); Sodium 138 mmol/L (136-145); Total Protein 8.9 g/dL (6.4-8.2)
[2021-12-28 12:28] LABS: Influenza A PCR Negative (Negative); Influenza B PCR Negative (Negative); RSV PCR Negative (Negative)
[2021-12-28 12:29] LABS: Source Nasopharynx
[2021-12-28 12:30] LABS: COVID-19 PCR Positive (Negative)
[2021-12-28 13:26] VITALS: BP 126/82; PULSE 75; RESP 18; TEMP 37.5; O2SAT 99
== END 2021-12-28 13:25 | disposition home or self-care (01) ==
PROVIDERS: Emergency Provider Physician Assistant; PCP Family Medicine
DX: U07.1 COVID-19 (principal); E86.0 Dehydration; J45.909 Unspecified asthma, uncomplicated; Z86.16 Personal history of COVID-19
CPT/HCPCS: 80053; 81025; 87637; 96361; 96374; 96375; 99284; 83735; 85025; J0131; J1885

== ENCOUNTER → 2023-03-07 01:47 | Outpatient (CLI) | payer MEDICAID, SELFPAY ==
--- NOTE | 2023-03-07 07:30 | DI.MAMMO_ITS ---
Exam(s) MAMMO SCREENING EXAM: MAMMO SCREENING CLINICAL HISTORY: SCREENING Z12.31,family h/o breast ca,z80.3 TECHNIQUE: Bilateral full field digital CC and MLO mammographic images were obtained with 3D tomosyn thesis and utilizing computer aided detection (CAD). COMPARISON: This is a baseline examination. FINDINGS: Masses/Architectural Distortion: There is a well-circumscribed 7 mm nodule at the 3 o'clock position of the right breast. No other suspicious nodules or areas of architectural distortion are seen. Microcalcifications: No suspicious pleomorphic-type are seen. Skin Thickening/Nipple Retraction: None. IMPRESSION: 1. 7 mm nodule at the 3 o'clock position of the right breast. 2. Follow-up examination with spot compression view and a limited right breast ultrasound are recomme nded. BI-RADS Category 0 - Assessment Incomplete: Need additional imaging evaluation Breast Density - Category C - Heterogeneously dense Breast density category C or D implies that the patient has dense breast tissue. Dense breast tissue is very common and is not abnormal but dense breast tissue can make it harder to find cancer on a ma mmogram. Also, dense breast tissue may increase their breast cancer risk. This information about the result of the mammogram report was provided to the patient to raise their awareness. Use this report when you speak with the patient about their risks for breast cancer, which includes their family hist ory. At that time, you may recommend for more screening tests (Ultrasound or MRI) as they might be us eful based on their risk. A negative radiographic report should not delay biopsy if a dominant or clinically suspicious mass is present. Up to ten percent of cancers are not identified on mammography. A negative report may reinforce clinical impression. Adenosis and dense breasts may obscure an underlying neoplasm. False positive reports average 6 to 10%. Patient will receive a letter notifying them of these results.
== END ==
PROVIDERS: PCP Family Medicine; Visit Provider Nurse Practitioner Family
DX: Z12.31 Encounter for screening mammogram for malignant neoplasm of breast (principal); Z80.3 Family history of malignant neoplasm of breast; C50.811 Malignant neoplasm of overlapping sites of right female breast
CPT/HCPCS: 77063; 77067

== ENCOUNTER → 2023-03-09 02:10 | Outpatient (CLI) | payer MEDICAID, SELFPAY ==
--- NOTE | 2023-03-09 | DI.US_ITS ---
Exam(s) MG MAMMO SCREEN CALL BACK UNI US BREAST RT LIMITED EXAM: MG MAMMO SCREEN CALL BACK UNI and U/S breast RT limited CLINICAL HISTORY: F/U MAMMO, RT BREAST NODULE. TECHNIQUE: Craniocaudal and mediolateral oblique Full Field Digital Mammography views of the right b reast with Computer Aided Diagnosis followed by Tomosynthesis and right breast ultrasound. COMPARISON: Comparison is made with prior examinations. FINDINGS: Mammography/Tomosynthesis: Masses/Architectural Distortion: There is again seen a very well-circumscribed round nodule at the 3 o'clock position of the right breast. Microcalcifictions: No suspicious pleomorphic-type are seen. Skin Thickening/Nipple Retraction: None. Limited right breast US: Echotexture: Normal appearance of the glandular tissue. Shadowing: No suspicious foci. Cyst: There is a 0.7 x 0.2 x 0.7 cm simple cyst at the 3 o'clock position of the right breast which w ould appear to correspond to the mammographic abnormality. There also simple cysts seen at the 12 o' clock position and the 2 o'clock position. They measure 5 x 3 x 8 mm and 7 x 3 x 7 mm respectively. Solid lesions: None seen. Ductal dilation: None. IMPRESSION: 1. No evidence of malignancy is noted. Findings consistent with simple cysts. 2. Unless there is more urgent need, follow-up screening mammography is recommended, as per [place] [employer] guidelines. 3. The findings were discussed with the patient on the date of the examination. BI-RADS Category 2 - Benign Findings Breast Density - Category C - Heterogeneously dense Breast density Category C or D implies that the patient has dense breast tissue. Dense breast tissue can make it harder to find cancer on a mammogram. Dense breast tissue is also associated with an incr eased risk of breast cancer. This information about the result of the mammogram report was provided to the patient to raise their awareness. Use this report when you speak with the patient about their risks for breast cancer, which includes their family history. At that time, you may recommend additional screening tests (Ultrasoun d or MRI) as these tests may add significant information. A negative radiographic report should not delay biopsy if a dominant or clinically suspicious mass is present. Up to ten percent of cancers are not identified on mammography. A negative report may reinforce clinical impression. Adenosis and dense breasts may obscure an underlying neoplasm. False positive reports average 6 to 10%. Patient will receive a letter notifying them of these results.
== END ==
PROVIDERS: PCP Family Medicine; Visit Provider Nurse Practitioner Family
DX: Z12.31 Encounter for screening mammogram for malignant neoplasm of breast (principal); N63.15 Unspecified lump in the right breast, overlapping quadrants
CPT/HCPCS: 76642; 77063; 77067

== ENCOUNTER 2023-08-10 14:42 | Outpatient (REF) | payer BC, MEDICAID, SELFPAY ==
[2023-08-10 22:09] LABS: HCT 37.7 % (36.0-46.0); HGB 12.5 g/dL (11.2-15.7); MCH 30.6 pg (27.0-33.0); MCHC 33.2 % (32.0-36.0); MCV 92 fL (80-95); MPV 10.5 fL (8.0-11.0); Platelet Count 175 10^3/uL (130-400); RBC 4.08 10^6/uL (3.93-5.22); RDW 11.6 % (11.7-14.6); RDW-SD 39.3 fL; WBC 8.14 10^3/uL (4.4-10.8)
[2023-08-10 22:24] LABS: ALT 31 U/L (14-59); AST 10 U/L (15-37); Albumin 4.1 g/dL (3.4-5.0); Alkaline Phosphatase 44 U/L (46-116); Anion Gap 7.9 mmol/L (3-11); BUN 14 mg/dL (7-18); Bilirubin, Total 0.3 mg/dL (0.2-1.0); CO2 29.1 mmol/L (21.0-32.0); CREATININE 0.6 mg/dL (0.55-1.02); Calcium 8.6 mg/dL (8.5-10.1); Chloride 104 mmol/L (98-107); Estimated GFR 115.57 (mL/min/1.73m2); Glucose 81 mg/dL (74-106); Potassium 3.9 mmol/L (3.5-5.1); Sodium 141 mmol/L (136-145); Total Protein 7.2 g/dL (6.4-8.2)
== END 2023-08-10 14:43 | disposition home or self-care (01) ==
LOC: NCHCN 14:42
PROVIDERS: PCP Nurse Practitioner Family; Visit Provider Nurse Practitioner Family
DX: F31.89 Other bipolar disorder (principal); F32.89 Other specified depressive episodes; Z51.81 Encounter for therapeutic drug level monitoring; Z79.899 Other long term (current) drug therapy
CPT/HCPCS: 80053; 85027